=== PATIENT | male | born 1940 | race Caucasian/White ===

== ENCOUNTER 2024-08-10 19:53 | Emergency (ER) | payer MEDICARE, SELFPAY ==
[2024-08-10] VITALS (18 sets, daily range): BP systolic 114–155; BP diastolic 49–82; PULSE 57–80; RESP 12–20; TEMP 36.6–36.7; O2SAT 97–100
--- NOTE | ~2024-08-10 | CT_ITS ---
CT cervical spine wo con Ordering provider: Davis Vernon MD History: . fall, head injury . Comparison: None. Technique: CT of the cervical spine was performed without contrast. Sagittal and coronal reformatted images were also obtained and reviewed. Automated exposure control and iterative reconstruction tenzin hnique were employed. The dose-length product was 411.72 mGy-cm. FINDINGS: VERTEBRAE: No subluxation or acute fracture. The occipital condyles are intact. DISC SPACES: Narrowing of the disc C3-C4, C4-C5. C7. Multilevel facet joint disease. Multilevel uncov ertebral joint osteoarthritic changes. Narrowing of the left foramina at the level of C3-C4 bilateral narrowing of the foramina at the level of C4-C5. Narrowing of the right foramen at the level of C5-6 and C6-C7. PARASPINOUS SOFT TISSUES: Normal. IMPRESSION: No acute osseous abnormality cervical spine. Multilevel degenerative disc disease. Reviewed, dictated and finalized at location A.
--- NOTE | ~2024-08-10 | CT_ITS ---
CT brain wo con Ordering provider: Davis Vernon MD History: 84 years Male with . fall . Comparison: None. Technique: CT of the head without contrast. Radiation reduction technique utilized. The dose-length p roduct was 681 mGy-cm. FINDINGS: BRAIN PARENCHYMA AND CSF SPACES: Enlarged sella turcica is noted with an adenoma extending into the s uprasellar area measuring 1.2 x 1.5 cm. Mild leukoaraiosis and diffuse cortical atrophy. Mild atherom atous disease. No midline shift, mass effect or hemorrhage. The brain parenchyma and CSF spaces are otherwise normal. VISUALIZED PARANASAL SINUSES: Well aerated. MASTOIDS: Well aerated. BONES: The bones appear intact. SOFT TISSUES: Visualized nasopharynx is normal. Superficial soft tissues are normal. IMPRESSION: No acute intracranial findings. 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 MRI with contrast evaluation is advised. Reviewed, dictated and finalized at location A. IMPRESSION: No acute intracranial findings. 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 MRI with contrast evaluation is advise [place]
--- NOTE | 2024-08-10 21:12 | ED_ITS ---
HPI - Head Injury General Chief complaint: Head Injury Stated complaint: Fall-hit head-on Eliquis Time Seen by Provider: 08/10/24 20:06 History of Present Illness HPI Narrative: 84-year-old male with history of AFib on Eliquis presents to the ED with family at bedside for a mechanical fall that occurred hour prior to arrival. Patient states he was walking on a stop when he caught his toe on a step and fell forward. He did hit his head but did not lose consciousness. He is reporting with an abrasion to the left forehead, bleeding controlled. Tdap up-to-date. Also reporting pain to the left side of his neck. He denies any other injury including back pain, abdominal pain, rib pain, upper lower extremity injury. Denies vision changes, focal numbness or weakness. Related Data Allergies Allergy/AdvReac Type Severity Reaction Status Date / Time No Known Allergies Allergy Verified 08/10/24 19:55 Review of Systems Review of Systems: All systems reviewed & are unremarkable except as noted in HPI and below Exam Narrative: GENERAL: Well-appearing, well-nourished, and in no acute distress. HEAD: Normocephalic, atraumatic. EYES: PERRLA and EOMI. ENT: Nares clear, no rhinorrhea or epistaxis. Mucous membranes moist. NECK: No midline cervical spinous tenderness, crepitus, step-offs or deformities. Tenderness to the left paraspinous muscles BACK: No midline thoracolumbar spinous tenderness, crepitus, step-offs or deformities CHEST: Clear to auscultation. No respiratory distress. No tenderness to chest wall HEART: Regular rate and rhythm. No murmur heard. Normal peripheral pulses. ABDOMEN: Soft, nontender, nondistended, normal active bowel sounds. EXTREMITIES: Normal range of motion. No edema. No tenderness to BUE or BLE SKIN: Superficial abrasion to the left forehead, bleeding controlled, no deep structures or foreign bodies visualized NEURO: No focal deficits. Alert and oriented x4. Cranial nerves 2-12 grossly intact. Strength 5/5 BUE and BLE. Sensation intact throughout Course Vital Signs Vital signs: Vital Signs Temperature 97.8 F 08/10/24 19:56 Pulse Rate 78 08/10/24 19:56 Respiratory Rate 18 08/10/24 19:56 Blood Pressure 154/82 H 08/10/24 19:56 Pulse Oximetry 100 08/10/24 19:56 Oxygen Delivery Room Air 08/10/24 19:56 Temperature 97.8 F 08/10/24 19:56 Pulse Rate 62 08/10/24 21:01 Respiratory Rate 15 08/10/24 21:01 Blood Pressure 123/72 08/10/24 21:01 Pulse Oximetry 100 08/10/24 21:01 Oxygen Delivery Room Air 08/10/24 19:56 MDM - Head Injury MDM Narrative Medical decision making narrative: 84-year-old male with history of AFib on Eliquis presents to emergency department for mechanical fall that occurred prior to arrival. Patient did hit his head but did not lose consciousness. Vitals with elevated blood pressure 154/82, otherwise unremarkable. Exam is notable for the above. Patient is neurovascularly intact. CT brain shows no acute intracranial findings. 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 CT cervical spine shows no acute osseous abnormality, multilevel degenerative disc disease. Patient family updated on results. Patient remains neurovascularly intact and resting comfortably in exam bed. He politely declines Tylenol. I discussed findings today and advised close follow-up with neurosurgery an outpatient MRI. Patient is traveling from [facility] which is where he lives. I advised to follow-up with his PCP for referral for Neurosurgery, however will also provide neurosurgery follow-up at our hospital if needed. I discussed strict ED return precautions. Patient and family are agreeable with the plan verbalized understanding. Discharged in stable condition. Discharge Plan Discharge Clinical Impression: Closed head injury, Pituitary mass, Acute cervical myofascial strain Patient Disposition: Home Condition: Stable Instructions: Antibiotic Form, Cervical Strain (DC), Head Injury (ED), Pituitary Adenoma (ED) Additional Instructions: Your evaluated in the emergency department after a fall. The CT scan of your brain and cervical spine showed no acute findings. 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 Please follow-up with neurosurgery and her primary care provider and obtain an outpatient MRI for further evaluation. Return to the emergency department if you develop vision changes, focal numbness or weakness, confusion or altered mental status, seizure-like activity, significant headache, or other concerning symptoms. Take Tylenol as directed [id number] as needed for pain. Patient Language: Trinidadian Follow-up/Referrals: Dallas Mcclelland MD [Physician] - UNKNOWN,DOCTOR [Primary Care Provider] -
== END 2024-08-10 21:58 | disposition home or self-care (01) ==
PROVIDERS: Emergency Provider Physician Assistant
DX: S09.90XA Unspecified injury of head, initial encounter (principal); S16.1XXA Strain of muscle, fascia and tendon at neck level, initial encounter; E23.7 Disorder of pituitary gland, unspecified; W10.9XXA Fall (on) (from) unspecified stairs and steps, initial encounter
CPT/HCPCS: 70450; 72125; 99284